=== PATIENT | female | born 1965 | race Caucasian/White ===

== ENCOUNTER 2017-03-15 15:22 | Emergency (ER) | payer MEDICAID ==
[2017-03-15] MEDS ORDERED: Prochlorperazine 10 MG in Sodium Chloride 0.9% 50 ML IV ONE (16:17)
[2017-03-15] MEDS ORDERED: diphenhydrAMINE 50 MG/ML SDV IVPUSH ONE (16:17)
[2017-03-15] MEDS ORDERED: Ketorolac 30 MG/ML SDV IVPUSH ONE (16:18)
--- NOTE | 2017-03-15 16:24 | EDM.PDOC ---
ED HPI GENERAL MEDICAL PROBLEM - General Chief Complaint: Headache Stated Complaint: BP HIGH Time Seen by Provider: 03/15/17 16:18 Source of Information: Reports: Patient, Family History Limitations: Reports: No Limitations - History of Present Illness INITIAL COMMENTS - FREE TEXT/NARRATIVE: pt has had a headache since Tuesday. She has taken the imitrex and had some relief but she is still having a headache a a 8. Onset: Gradual Duration: Day(s):, Waxing/Waning Quality: Reports: Ache Associated Symptoms: Reports: Headaches, Other ( she noted that her bp was low. She had pressures as low as a 60. ) - Related Data Allergies Allergy/AdvReac Type Severity Reaction Status Date / Time hornets Allergy Severe Anaphylactic Uncoded 12/15/16 11:26 Shock Home Meds: Home Meds Gabapentin [Neurontin] 400 mg PO TID 07/19/13 [History] Levothyroxine [Synthroid] 50 mcg PO DAILY 07/19/13 [History] Lisinopril [Prinivil] 20 mg PO DAILY 07/19/13 [History] Loratadine [Claritin] 10 mg PO DAILY 07/19/13 [History] Ranitidine HCl [Zantac 75] 75 mg PO DAILY 07/19/13 [History] SUMAtriptan Succinate [Imitrex] 100 mg PO BID PRN 07/19/13 [History] SUMAtriptan [Imitrex Pen Injector Kit] 1 kit SUBCUT ASDIRECTED PRN 07/19/13 [ History] Gabapentin [Neurontin] 400 mg PO TID 03/15/17 [History] amLODIPine Besylate [Amlodipine Besylate] 1 tab PO DAILY 03/15/17 [History] Past Medical History Musculoskeletal History: Reports: Other (See Below) Other Musculoskeletal History: right bthe knee amputation Neurological History: Reports: Other (See Below) Other Neuro History: fibro myalgia Endocrine/Metabolic History: Reports: Hypoparathyroidism - Past Surgical History HEENT Surgical History: Reports: Tonsillectomy Female Surgical History: Reports: Section Social & Family History - Tobacco Use Smoking Status *Q: Never Smoker - Alcohol Use Days Per Week of Alcohol Use: 2 Number of Drinks Per Day: 2 Total Drinks Per Week: 4 - Recreational Drug Use Recreational Drug Use: No ED ROS GENERAL - Review of Systems Review Of Systems: See Below Constitutional: Reports: No Symptoms HEENT: Reports: No Symptoms Respiratory: Reports: No Symptoms Cardiovascular: Reports: No Symptoms Endocrine: Reports: No Symptoms GI/Abdominal: Reports: Nausea, Other ( she has vomited a couple of times. ) : Reports: No Symptoms Musculoskeletal: Reports: No Symptoms Skin: Reports: No Symptoms Neurological: Reports: Headache - Physical Exam Exam: See Below Text/Narrative:: pt arrived with a bad headache and hr bp has been low. She was just started on a new bp med--amlodopine 5 mg. Exam Limited By: No Limitations General Appearance: Alert, Anxious Ears: Normal External Exam Nose: Normal Inspection Throat/Mouth: Normal Inspection Head Exam: Atraumatic Neck: Normal Inspection Respiratory/Chest: No Respiratory Distress Cardiovascular: Regular Rate, Rhythm GI/Abdominal: Soft, Non-Tender Back Exam: Normal Inspection Extremities: Normal Inspection Psychiatric: Normal Affect Course - Vital Signs Last Recorded V/S: Last Vital Signs Temp 36.1 C 03/15/17 16:03 Pulse 87 03/15/17 17:03 Resp 16 03/15/17 16:03 BP 112/81 03/15/17 17:03 Pulse Ox 98 03/15/17 17:03 - Orders/Labs/Meds Orders: Active Orders 24 hr Category Date Time Status Sodium Chloride 0.9% [Normal Saline] 1,000 ml Med 03/15/17 16:30 Active IV ASDIRECTED Medication Orders Sodium Chloride (Normal Saline) 1,000 mls @ 999 mls/hr IV ASDIRECTED WHITLEY Last Admin: 03/15/17 17:12 Dose: 999 mls/hr Labs: Laboratory Tests 03/15/17 03/15/17 03/15/17 Range/Units 16:25 16:25 16:44 WBC 9.8 (4.5-11.0) K/uL RBC 4.75 (3.30-5.50) M/uL Hgb 13.5 (12.0-15.0) g/dL Hct 40.5 (36.0-48.0) % MCV 85 (80-98) fL MCH 28 (27-31) pg MCHC 33 (32-36) % Plt Count 355 (150-400) K/uL Neut % (Auto) 68 H (36-66) % Lymph % (Auto) 19 L (24-44) % [place] % (Auto) 10 H (2-6) % Eos % (Auto) 3 (2-4) % Baso % (Auto) 1 (0-1) % Sodium 139 L (140-148) mmol/L Potassium 4.0 (3.6-5.2) mmol/L Chloride 103 (100-108) mmol/L Carbon Dioxide 28 (21-32) mmol/L Anion Gap 12.0 (5.0-14.0) mmol/L BUN 20 H (7-18) mg/dL Creatinine 1.0 (0.6-1.0) mg/dL Est Cr Clr Drug Dosing 65.45 mL/min Estimated GFR (MDRD) 59 L (>60) Glucose 100 (74-106) mg/dL Calcium 8.5 (8.5-10.1) mg/dL Total Bilirubin 0.4 (0.2-1.0) mg/dL AST 14 L (15-37) U/L ALT 15 (12-78) U/L Alkaline Phosphatase 65 (46-116) U/L Total Protein 7.2 (6.4-8.2) g/dL Albumin 3.2 L (3.4-5.0) g/dL Globulin 4.0 H (2.3-3.5) g/dL Albumin/Globulin Ratio 0.8 L (1.2-2.2) Urine Color Yellow Urine Appearance Slightly cloudy Urine pH 5.0 (4.5-8.0) Ur Specific [place] 1.025 (1.008-1.030) Urine Protein Trace (NEGATIVE) mg/dL Urine Glucose (UA) Normal (NEGATIVE) mg/dL Urine Ketones Negative (NEGATIVE) mg/dL Urine Occult Blood Large (NEGATIVE) Urine Nitrite Negative (NEGATIVE) Urine Bilirubin Small (NEGATIVE) Urine Urobilinogen 1 (NORMAL) mg/dL Ur Leukocyte Esterase Negative (NEGATIVE) Urine RBC (0-5) Urine WBC (0-5) Ur Epithelial Cells Amorphous Sediment Urine Bacteria Urine Mucus Meds: Medications Generic Name Dose Route Start Last Admin Trade Name Freq PRN Reason Stop Dose Admin Sodium Chloride 1,000 mls @ 999 mls/hr 03/15/17 16:30 03/15/17 17:12 Normal Saline IV 999 mls/hr ASDIRECTED WHITLEY Administration Discontinued Medications Generic Name Dose Route Start Last Admin Trade Name Freq PRN Reason Stop Dose Admin Diphenhydramine HCl 25 mg 03/15/17 16:17 03/15/17 17:13 Benadryl IVPUSH 03/15/17 16:18 25 mg ONETIME ONE Administration Hydromorphone HCl 0.5 mg 03/15/17 17:54 Dilaudid IVPUSH 03/15/17 17:55 ONETIME ONE Prochlorperazine Edisylate 10 52 mls @ 150 mls/hr 03/15/17 16:17 03/15/17 17: 18 mg/ Sodium Chloride IV 03/15/17 16:37 Not Given ONETIME ONE Ketorolac Tromethamine 30 mg 03/15/17 16:18 03/15/17 17:13 Toradol IVPUSH 03/15/17 16:19 30 mg ONETIME ONE Administration Prochlorperazine Edisylate 10 mg 03/15/17 17:15 03/15/17 17:16 Compazine IVPUSH 03/15/17 17:16 10 mg ONETIME ONE Administration - Re-Assessments/Exams Free Text/Narrative Re-Assessment/Exam: 03/15/17 18:06 pt had a low bp at home. She was recently put on amlodipine 5 mg 3-4 days ago. Prt has had a headache since Tuesday. She has been using immitrex which has helped some. He headache level was a 8 on arrival. She was given 1 liter of fluid, benadryl 25 mg, torodol 30mg, compazine 10mg. The pain went down to a 4 and she was given dilaudid .5. She will go home and rest. Departure - Departure Time of Disposition: 18:09 Disposition: Home, Self-Care 01 Condition: fair Clinical Impression: Low BP, Migraine headache - Discharge Information Forms: ED Department Discharge Care Plan Goals: keep appt with Dr Willett tomorrow, hold amlodipine tomorrow. She may need to go to 1/2 tab, comnt immitrex. rest when she returns home. - My Orders Last 24 Hours: My Active Orders 03/15/17 16:30 Sodium Chloride 0.9% [Normal Saline] 1,000 ml IV ASDIRECTED - Assessment/Plan Last 24 Hours: My Active Orders 03/15/17 16:30 Sodium Chloride 0.9% [Normal Saline] 1,000 ml IV ASDIRECTED
[2017-03-15] MEDS ORDERED: Sodium Chloride 0.9% 1,000 ML IV SCH (16:30)
[2017-03-15 17:04] VITALS: BP 112/81
[2017-03-15] MEDS ORDERED: Prochlorperazine 10 MG/2 ML SDV IVPUSH ONE (17:15)
[2017-03-15] MEDS ORDERED: HYDROmorphone 0.5 MG/0.5 ML Syringe IVPUSH ONE (17:54)
== END 2017-03-15 18:30 | disposition home or self-care (01) ==
LOC: JP.ED 15:22
DX: G43.909 Migraine, unspecified, not intractable, without status migrainosus (principal); I95.9 Hypotension, unspecified; E20.9 Hypoparathyroidism, unspecified; Z79.899 Other long term (current) drug therapy; Z98.890 Other specified postprocedural states; Z91.038 Other insect allergy status
CPT/HCPCS: 36415; 80053; 81001; 85025; 96361; 96374; 96375; 99284; J0780; J1170; J1200; J1885; J7040

== ENCOUNTER 2019-02-07 08:22 | Outpatient (CLI) | payer MEDICAID, SELFPAY ==
[~2019-02-07 08:22] MED LIST: Bupivacaine 0.25% 10 ML SDV ONE; Bupivacaine 0.5% 30 ML SDV ONE; Triamcinolone Acetonide 40 MG/ML 1 ML MDV ONE; methylPREDNISolone Acetate 40 MG/ML SDV ONE
[2019-02-07 09:42] VITALS: BP 155/95; PULSE 79
--- NOTE | 2019-02-07 09:47 | ANES ---
DATE OF SERVICE: 02/07/2019 INDICATION: Mrs. Marley is a 53-year-old female patient, referred to the [facility] to us by Dr. Willett. She is here today for an epidural steroid injection as well as trigger points. Please see the orders for the patient's preprocedure diagnosis as well as ICD-10 code. The risks and benefits of the procedure were explained to the patient. She wished to proceed with an epidural and trigger points. TECHNIQUE: The epidural was placed at L3-4 using a 17-gauge Tuohy needle and loss-of- resistance technique. The epidural had good feel throughout, and the epidural space was easily identified. There was negative CSF, negative blood, and negative paresthesias noted. Therefore, 40 mg of Depo-Medrol and 2 mL of 0.25% Sensorcaine with 7 mL preservative-free normal saline were injected with ease. The patient tolerated the epidural procedure very nicely. Attention was then turned to the trigger points, where I did find 20 noticeable cervical and thoracic trigger points. I injected each of these with 1 to 2 mL of 0.5% Sensorcaine with a Kenalog mixture. I did inject more than 3 muscle groups. She tolerated the procedures very nicely. She is going to return next week for trigger points in her neck. She was discharged from the [facility] per protocol. Chet Curtis CRNA /[id number]
== END 2019-02-07 09:20 | disposition home or self-care (01) ==
LOC: JP.PAIN 08:22
PROVIDERS: ATTEND Family Medicine
DX: M79.10 Myalgia, unspecified site (principal); M54.5 Low back pain
CPT/HCPCS: 20553; 62322; J1030; J3301; J3490

== ENCOUNTER 2019-03-14 08:14 | Outpatient (CLI) | payer MEDICAID, SELFPAY ==
[~2019-03-14 08:14] MED LIST changes: -Bupivacaine 0.25% 10 ML SDV ONE; -methylPREDNISolone Acetate 40 MG/ML SDV ONE
[2019-03-14 08:38] VITALS: BP 144/92; PULSE 87
--- NOTE | 2019-03-14 17:47 | ANES ---
DATE OF SERVICE: 03/14/2019 INDICATION: Mrs. Marley is a 53-year-old female patient, referred to the [facility] to us by Dr. Willett. She is here today for trigger points. Please see the orders for the patient's preprocedure diagnosis as well as ICD-10 code. The risks and benefits of the procedure were explained to the patient. She wished to proceed with trigger point injections. TECHNIQUE: I did find 21 noticeable cervical and thoracic trigger points. I injected each of these with 1 to 2 mL of 0.5% Sensorcaine with a Kenalog mixture. I did inject more than 3 muscle groups. She tolerated the procedure very nicely. Her vital signs remained stable throughout the procedure and nurse was with me for the entire procedure. There were no anesthesia complications noted. She is going to return in 2 weeks for trigger point injections. She was discharged from the [facility] per protocol. Chet Curtis CRNA /[id number]
== END 2019-03-14 08:55 | disposition home or self-care (01) ==
LOC: JP.PAIN 08:14
PROVIDERS: ATTEND Family Medicine
DX: M79.10 Myalgia, unspecified site (principal)
CPT/HCPCS: 20553; J3301; J3490

== ENCOUNTER 2023-05-23 10:07 | Emergency (ER) | payer MEDICAID ==
[2023-05-23] MEDS ORDERED: HYDROmorphone 0.5 MG/0.5 ML Syringe IVPUSH ONE (13:40)
[2023-05-23] MEDS ORDERED: Ondansetron 4 MG/2 ML SDV IVPUSH ONE (13:40)
[2023-05-23] MEDS ORDERED: Sodium Chloride 0.9% 10 ML Syringe FLUSH PRN ×2 (13:41→14:23)
[2023-05-23] MEDS ORDERED: Naloxone 0.4 MG/ML SDV IVPUSH PRN (13:41)
[2023-05-23 13:57] LABS: BASOPHILS PERCENT AUTO 0.4 % (0.1-1.3); EOSINOPHILS ABSOLUTE AUTO 0.15 K/uL (0.00-0.40); HEMATOCRIT 42.9 % (34.3-46.0); HEMOGLOBIN 14.1 g/dL (11.2-15.5); IMMATURE GRAN PERCENT AUTO 0.2 % (0.0-0.7); LYMPHOCYTES ABSOLUTE AUTO 1.89 K/uL (0.8-3.3); LYMPHOCYTES PERCENT AUTO 38.3 % (11.4-47.7); MEAN CORPUSCULAR HGB CONC 32.9 g/dL (31.6-35.5); MEAN CORPUSCULAR VOLUME 88.1 fL (81.4-99.0); MONOCYTES ABSOLUTE AUTO 0.43 K/uL (0.20-0.90); MONOCYTES PERCENT AUTO 8.7 % (3.3-12.6); NEUTROPHILS ABSOLUTE AUTO 2.44 K/uL (1.0-7.6); NEUTROPHILS PERCENT AUTO 49.4 % (40.0-78.1); PLATELET COUNT,PLT 247 K/uL (130-375); RED BLOOD CELL COUNT 4.87 M/uL (3.77-5.24); WHITE BLOOD CELL COUNT,WBC 4.9 K/uL (3.2-11.0)
[2023-05-23] MEDS ORDERED: Sodium Chloride 0.9% 1,000 ML IV SCH (14:00)
[2023-05-23 14:01] LABS: BASOPHILS ABSOLUTE AUTO 0.02 K/uL (0.00-0.10); IMMATURE GRAN ABSOLUTE AUTO 0.01 K/uL (0.00-0.23)
[2023-05-23 14:19] LABS: A/G RATIO 0.9 (1.2-2.2); ALANINE AMINOTRANSFERASE,ALT 22 U/L (12-78); ALBUMIN 3.4 g/dL (3.4-5.0); ALKALINE PHOSPHATASE 55 U/L (46-116); ASPARTATE AMNIOTRANSFERASE,AST 20 U/L (15-37); BILIRUBIN TOTAL 0.6 mg/dL (0.2-1.0); BLOOD UREA NITROGEN,BUN 8 mg/dL (7-18); C-REACTIVE PROTEIN 0.05 mg/dL (0.0-0.3); CALCIUM 9.2 mg/dL (8.5-10.1); CARBON DIOXIDE,CO2 29 mmol/L (21-32); CHLORIDE,CL 102 mmol/L (100-108); CREATININE 0.7 mg/dL (0.6-1.0); EST CRCL DRUG DOSING (CG) 90.53 mL/min; ESTIMATED GFR 101 mL/min (>60); GLUCOSE RANDOM 84 mg/dL (74-106); POTASSIUM,K 3.5 mmol/L (3.6-5.2); SODIUM,NA 139 mmol/L (140-148)
[2023-05-23 14:22] LABS: ANION GAP 11.5 mmol/L (5.0-14.0)
[2023-05-23] MEDS ORDERED: Iopamidol 612 MG/ML 100 ML Bottle IV PRN (14:23)
[2023-05-23] MEDS ORDERED: Sodium Chloride 0.9% 50 ML IV ONE (14:23)
[2023-05-23 14:30] LABS: APPEARANCE,URINE CLEAR (CLEAR); BILIRUBIN,URINE NEGATIVE (NEGATIVE); COLOR,URINE YELLOW (YELLOW); GLUCOSE,URINE NEGATIVE (NEGATIVE); KETONES,URINE NEGATIVE (NEGATIVE); LEUKOCYTE ESTERASE,URINE TRACE (NEGATIVE); NITRITE,URINE NEGATIVE (NEGATIVE); OCCULT BLOOD,URINE NEGATIVE (NEGATIVE); PH,URINE 8.5 (5.0-8.0); PROTEIN,URINE NEGATIVE (NEGATIVE); UROBILINOGEN,URINE 0.2 EU/dL (0.2-1.0)
[2023-05-23 14:42] LABS: AMORPHOUS SEDIMENT,URINE NUMEROUS; BACTERIA,URINE MODERATE; EPITHELIAL CELLS,URINE NOT SEEN; MUCUS,URINE NOT SEEN; RBC,URINE NOT SEEN (0-5)
[2023-05-23 15:54] VITALS: BP 124/81; PULSE 64
== END 2023-05-23 16:25 | disposition home or self-care (01) ==
LOC: JP.ED 10:07
DX: M54.14 Radiculopathy, thoracic region (principal); R10.31 Right lower quadrant pain; R91.1 Solitary pulmonary nodule; K44.9 Diaphragmatic hernia without obstruction or gangrene; I10 Essential (primary) hypertension; K21.9 Gastro-esophageal reflux disease without esophagitis; E03.9 Hypothyroidism, unspecified; Z91.038 Other insect allergy status; Z79.899 Other long term (current) drug therapy; Z79.82 Long term (current) use of aspirin
CPT/HCPCS: 36415; 74177; 80053; 81001; 83690; 85025; 86140; 96361; 96374; 96375; 99284; J1170; J2405; J3490; J7030; Q9967